=== PATIENT | male | born 1980 | race Caucasian/White ===

== ENCOUNTER → 2018-09-28 07:04 | Outpatient (CLI) | payer BC, SELFPAY ==
[2018-09-28 13:52] LABS: Basophils # 0.1 K/mm3 (0-0.2); Basophils % 1.2 % (0.1-2.0); Eosinophils # 0.2 K/mm3 (0.0-0.4); Eosinophils % 2.6 % (0.1-12.0); Hematocrit 45.8 % (42.0-52.0); Hemoglobin 15.6 g/dL (14.1-18.0); Lymphocytes # 2.1 K/mm3 (0.7-4.5); Lymphocytes % 30.9 % (10-50); Mean Corpuscular HGB Conc 34.1 g/dL (31.8-35.4); Mean Corpuscular Hemoglobin 30.4 pg (27.0-31.2); Mean Corpuscular Volume 89.1 fl (80-94); Monocytes # 0.3 K/mm3 (0.1-1.0); Monocytes % 4.3 % (1.7-9.3); Neutrophils # 4.1 K/mm3 (1.8-7.8); Platelet Count 343 K/mm3 (142-424); Red Blood Count 5.14 M/mm3 (4.60-6.20); Red Cell Distribution Width 13.1 % (11.5-17.5); White Blood Count 6.7 K/mm3 (4.8-10.8)
[2018-09-28 14:25] LABS: Alanine Aminotransferase 46 U/L (12-78); Albumin/Globulin Ratio 1.1 (1.1-1.8); Alkaline Phosphatase 159 U/L (46-116); Anion Gap 14.2 mEq/L (5-15); Aspartate Amino Transferase 21 U/L (15-37); Bilirubin,Total 0.3 mg/dL (0.2-1.0); Blood Urea Nitrogen 22 mg/dL (7-18); Calcium 9.2 mg/dL (8.5-10.1); Carbon Dioxide 27 mmol/L (21.0-32.0); Chloride 102 mmol/L (98-107); Chol/HDL Ratio 8.2 (1-3.5); Cholesterol 197 mg/dL (140-200); Estimated Glomerular Filt Rate 84 ml/min (>60); GFR (African American) 101 ML/MIN (>60); Globulin 3.5 gm/dl (1.3-3.2); Glucose 111 mg/dL (74-106); HDL Cholesterol 24 mg/dL (27-67); LDL Cholesterol 122 mg/dL (0-130); Potassium 4.2 mmoL/L (3.5-5.1); Sodium 139 mmol/L (136-145); Thyroid Stimulating Hormone 2.25 uIU/ml (0.358-3.740); Total Protein,Serum 7.5 gm/dL (6.4-8.2); Triglycerides 257 mg/dL (30-200); VLDL Cholesterol 51 mg/dL (0-40)
[2018-09-28 15:53] LABS: Hemoglobin A1C 5.4 % (0.0-7.0)
== END ==
PROVIDERS: PCP Nurse Practitioner Family; Visit Provider Nurse Practitioner Family
DX: K21.9 Gastro-esophageal reflux disease without esophagitis (principal); R13.10 Dysphagia, unspecified; G43.909 Migraine, unspecified, not intractable, without status migrainosus; I16.0 Hypertensive urgency; Z68.32 Body mass index [BMI] 32.0-32.9, adult
CPT/HCPCS: 36415; 80053; 80061; 83036; 84443; 85025

== ENCOUNTER 2021-02-03 21:32 | Emergency (ER) | payer BC, SELFPAY ==
[2021-02-03 21:33] VITALS: BP 117/72; PULSE 64; RESP 16; TEMP 37.1; O2SAT 99; BMI 33.0
[2021-02-03 21:41] VITALS: BP 117/72; PULSE 62; RESP 18; O2SAT 97
--- NOTE | 2021-02-03 21:51 | CT_ITS ---
PROCEDURE INFORMATION: Exam: CT Head Without Contrast Exam date and time: 02/03/2021 9:51 PM Age: 40 years old Clinical indication: Syncope and collapse; Additional info: Weakness TECHNIQUE: Imaging protocol: Computed tomography of the head without contrast. Radiation optimization: All CT scans at this facility use at least one of these dose optimization techniques: automated exposure control; mA and/or kV adjustment per patient size (includes targeted exams where dose is matched to clinical indication); or iterative reconstruction. COMPARISON: No relevant prior studies available. FINDINGS: Brain: Normal. No hemorrhage. Unremarkable white matter. No mass effect. Cerebral ventricles: No ventriculomegaly. Paranasal sinuses: Mild ethmoid mucosal thickening is present. Mild polypoid mucoperiosteal thickening of the maxillary sinuses is present. Mastoid air cells: Visualized mastoid air cells are well aerated. Bones/joints: Unremarkable. No acute fracture. Soft tissues: Unremarkable. IMPRESSION: No acute intracranial abnormality.
--- NOTE | 2021-02-03 21:51 | XR_ITS ---
PROCEDURE INFORMATION: Exam: XR Chest Exam date and time: 02/03/2021 9:51 PM Age: 40 years old Clinical indication: Other: Syncope; Additional info: Weakness TECHNIQUE: Imaging protocol: XR of the chest. Views: 2 views. COMPARISON: No relevant prior studies available. FINDINGS: Airway: Patent Lungs: Bilateral mid to basal patchy and ground-glass airspace opacities are appreciated. Bilateral perihilar haziness and streaky-like opacities. Mild segmental bronchial wall thickening. Pleural spaces: Unremarkable. No pleural effusion. No pneumothorax. Heart/Mediastinum: Unremarkable. No cardiomegaly. Bones/joints: No acute skeletal abnormality or aggressive osseous lesion. IMPRESSION: Mid to basal predominant moderate acute airspace disease, concerning for atypical infectious pneumonia in the appropriate clinical setting.
--- NOTE | 2021-02-03 21:51 | CT_ITS ---
PROCEDURE INFORMATION: Exam: CT Abdomen And Pelvis With Contrast Exam date and time: 02/03/2021 9:51 PM Age: 40 years old Clinical indication: Nausea; Patient HX: Abd discomfort, weakness, syncope TECHNIQUE: Imaging protocol: Computed tomography of the abdomen and pelvis with contrast. Radiation optimization: All CT scans at this facility use at least one of these dose optimization techniques: automated exposure control; mA and/or kV adjustment per patient size (includes targeted exams where dose is matched to clinical indication); or iterative reconstruction. Contrast material: ISOVUE; Contrast volume: 75 ml; Contrast route: IV; COMPARISON: CR XR CHEST 2V 02/03/2021 10:22 PM FINDINGS: Lungs: Calcified granuloma in the right lung base is of no clinical concern. Scattered patchy and ground-glass airspace opacifications are appreciated in the bilateral lung bases. Liver: There is enlargement of the liver, measuring 19 cm. There is a diffuse decrease in hepatic parenchymal density, consistent with fatty infiltration. 7 mm hypodense lesion in the right hepatic lobe on image 22 series 3 is too small to characterize but most probably benign representing a small cyst or hemangioma. No follow-up is recommended. The liver is otherwise unremarkable. Gallbladder and bile ducts: Normal. No calcified stones. No ductal dilation. Pancreas: Normal. No ductal dilation. Spleen: Punctate splenic calcifications are of no concern and most probably vascular in etiology. The spleen is otherwise unremarkable. Adrenal glands: Normal. No mass. Kidneys and ureters: Normal. No hydronephrosis. Stomach and bowel: No bowel obstruction or significant bowel wall thickening. Appendix: A normal appendix is identified. Intraperitoneal space: Unremarkable. No free air. No significant fluid collection. Vasculature: Unremarkable. No abdominal aortic aneurysm. Lymph nodes: Unremarkable. No enlarged lymph nodes. Urinary bladder: Unremarkable as visualized. Reproductive: The prostate demonstrates nonspecific parenchymal calcifications. Bones/joints: Unremarkable. No acute fracture. Soft tissues: Unremarkable. IMPRESSION: 1. Moderate to severe acute airspace disease in the bilateral lung bases, highly concerning for atypical infectious pneumonia. Commonly reported imaging features of COVID-19 pneumonia are present. Other processes such as influenza pneumonia and organizing pneumonia, as can be seen with drug toxicity and connective tissue disease, can cause a similar imaging pattern. (Reference: Lisandro) 2. Negative for acute abdominopelvic pathology. 3. Incidental findings as detailed above. REFERENCES: Lisandro Baeza, et al., [employer] Society of [place] Expert Consensus Statement on Reporting Chest CT Findings Related to COVID-19. Endorsed by the Society of [employer]acic Radiology, the [place] [employer], and [employer]NA. Published October 06, 2019.
--- NOTE | 2021-02-03 21:56 | ECG_ITS ---
APPROVED REPORT Exam: Resting ECG HR:63 bpm ECG Measurements Heart Rate 63 AXES SC 136 P 27 QRSd 88 QRS 15 QT 390 T -3 QTc 399 Conclusion Normal sinus rhythm Normal ECG Electronically signed by : Rich Parikh, 02/04/2021 08:24:05
[2021-02-03 22:02] LABS: Basophils % 0.8 % (0.1-2.0); Eosinophils % 1.1 % (0.1-12.0); Hematocrit 40.4 % (42.0-52.0); Hemoglobin 14.4 g/dL (14.1-18.0); Lymphocytes # 1.2 K/mm3 (0.7-4.5); Lymphocytes % 30.7 % (10-50); Mean Corpuscular HGB Conc 35.7 g/dL (31.8-35.4); Mean Corpuscular Hemoglobin 31.4 pg (27.0-31.2); Mean Corpuscular Volume 87.9 fl (80-94); Mean Platelet Volume 8.1 fl (7.4-10.4); Monocytes # 0.2 K/mm3 (0.1-1.0); Neutrophils # 2.4 K/mm3 (1.8-7.8); Neutrophils % 63.3 % (37.0-80.0); Platelet Count 209 K/mm3 (142-424); Red Cell Distribution Width 13.7 % (11.5-17.5); White Blood Count 3.8 K/mm3 (4.8-10.8)
[2021-02-03 22:02] LABS: Adenovirus,PCR Not Detected (NotDetected); Bordetella Pertussis Not Detected (NotDetected); Chlamydophila Pneumoniae, PCR Not Detected (NotDetected); Coronavirus 229E Not Detected (NotDetected); Coronavirus NL63 Not Detected (NotDetected); Coronavirus OC43 Not Detected (NotDetected); Coronovirus HKU1,PCR Not Detected (NotDetected); Human Metapneumovirus Not Detected (NotDetected); Influenza A, PCR Not Detected (NotDetected); Influenza AH1, 2009 Not Detected (NotDetected); Influenza AH1, PCR Not Detected (NotDetected); Influenza AH3,PCR Not Detected (NotDetected); Influenza B, PCR Not Detected (NotDetected); Mycoplasma Pneumoniae, PCR Not Detected (NotDetected); Parainfluenza 1, PCR Not Detected (NotDetected); Parainfluenza 2, PCR Not Detected (NotDetected); Parainfluenza 3, PCR Not Detected (NotDetected); Parainfluenza 4, PCR Not Detected (NotDetected); Respiratory Syncytial Virus Not Detected (NotDetected); Rhinovirus/Enterovirus Not Detected (NotDetected)
[2021-02-03 22:06] LABS: Alanine Aminotransferase 59 U/L (12-78); Albumin Level 4.3 g/dl (3.5-5.0); Albumin/Globulin Ratio 1.3 (1.1-1.8); Alkaline Phosphatase 130 U/L (38-126); Anion Gap 10.2 mEq/L (5-15); Aspartate Amino Transferase 64 U/L (17-59); Bilirubin,Total 0.7 mg/dl (0.2-1.3); Blood Urea Nitrogen 27 mg/dl (9-20); Calcium 8.6 mg/dl (8.4-10.2); Carbon Dioxide 30 mmol/L (22.0-30.0); Chloride 97 mmol/L (98-107); Creatinine Clearance Estimated 87 mL/min (50-200); Estimated Glomerular Filt Rate 42 ml/min (>60); GFR (African American) 51 ML/MIN (>60); Globulin 3.2 g/dL (1.3-3.2); Glucose 134 mg/dl (74-100); Potassium 3.2 mmoL/L (3.5-5.1); Sodium 134 mmol/L (136-145); Total Protein,Serum 7.5 g/dl (6.3-8.2)
[2021-02-03 22:07] VITALS: BP 101/70; PULSE 70; RESP 18; O2SAT 97
[2021-02-03 22:11] LABS: C-Reactive Protein 22.1 mg/L (0-4)
[2021-02-03 22:20] LABS: Troponin I < 0.01 ng/ml (0.00-0.034)
--- NOTE | 2021-02-03 22:21 | [facility].EDWEAK ---
ED Disposition Clinical Impression: Pneumonia due to COVID-19 virus, YUVAL (acute kidney injury) Disposition: Home, Self-Care Condition on Discharge: Good Instructions: DI for COVID-19 (Suspected or Confirmed ) Additional Instructions: fluids and hold lisinopril and call pcp friday Prescriptions: predniSONE [Prednisone 20mg Tab] 20 mg PO BID #10 tab Transmission Status: Pending to [id number] Azithromycin [Zithromax 250mg tab] 250 mg PO DIRECTED #6 tab Transmission Status: Pending to [facility] ondansetron HCL [Zofran 4mg Tab] 4 mg PO TID #21 tab Transmission Status: Pending to [id number] Referrals: Evonne Haas APRN [Primary Care Provider] - - Critical Care Critical Care Time: No Attestation: On 02/03/21, the high probability of a clinically significant, sudden or life threatening deterioration of the following system(s) required my full and direct attention, intervention and personal management. The time I documented below is in addition to time spent performing reported procedures but includes the following listed in this critical care notation. Medical Decision Making - Medical Records Medical records reviewed: Yes: I reviewed the patient's medical records. - Jacob Inquiry Pt receiving controlled substance: No Vital Signs: 02/03/21 21:33 02/03/21 21:41 02/03/21 22:07 Temperature 98.8 F Temperature Source Oral Pulse Rate 62 70 Pulse Rate [Right] 64 Respiratory Rate 16 18 18 Blood Pressure 117/72 101/70 L Blood Pressure [Right Arm] 117/72 Blood Pressure Mean 76 76 Blood Pressure Mean [Right Arm] 87 02 Sat by Pulse Oximetry 99 97 97 02/03/21 22:53 02/03/21 23:00 02/03/21 23:30 Temperature Temperature Source Pulse Rate 64 59 L 61 Pulse Rate [Right] Respiratory Rate 18 18 16 Blood Pressure 104/61 L 109/58 L 111/71 Blood Pressure [Right Arm] Blood Pressure Mean 76 68 79 Blood Pressure Mean [Right Arm] 02 Sat by Pulse Oximetry 97 95 94 L 02/04/21 00:00 02/04/21 00:30 02/04/21 01:01 Temperature Temperature Source Pulse Rate 72 59 L 62 Pulse Rate [Right] Respiratory Rate 18 20 18 Blood Pressure 104/49 L 105/70 L 80/38 L Blood Pressure [Right Arm] Blood Pressure Mean 67 78 52 Blood Pressure Mean [Right Arm] 02 Sat by Pulse Oximetry 94 L 96 98 02/04/21 01:04 02/04/21 01:30 Temperature Temperature Source Pulse Rate 60 65 Pulse Rate [Right] Respiratory Rate 16 16 Blood Pressure 88/44 L 130/80 Blood Pressure [Right Arm] Blood Pressure Mean 52 93 Blood Pressure Mean [Right Arm] 02 Sat by Pulse Oximetry 97 96 - Lab Data Lab results reviewed: Yes: I reviewed the patient's lab results. Lab Results 02/03/21 21:48: WBC 3.8 L, RBC 4.60, Hgb 14.4, Hct 40.4 L, MCV 87.9, MCH 31.4 H, MCHC 35.7 H, RDW 13.7, Plt Count 209, MPV 8.1, Neut % (Auto) 63.3, Lymph % (Auto) 30.7, [place] % (Auto) 4.0, Eos % (Auto) 1.1, Baso % (Auto) 0.8, Neut # (Auto) 2.4, Lymph # (Auto) 1.2, [place] # (Auto) 0.2, Eos # (Auto) 0.0, Baso # (Auto) 0.0, ESR 25 H 02/03/21 21:48: Sodium 134 L, Potassium 3.2 L, Chloride 97 L, Carbon Dioxide 30, Anion Gap 10.2, BUN 27 H, Creatinine 1.80 H, Estimated Creat Clear 87, Estimated GFR 42 L, Est GFR ( Amer) 51 L, Glucose 134 H, Calcium 8.6, Total Bilirubin 0.7, AST 64 H, ALT 59, Alkaline Phosphatase 130 H, Troponin I < 0.01, C-Reactive Protein 22.1 H, Total Protein 7.5, Albumin 4.3, Globulin 3.2, Albumin/Globulin Ratio 1.3, Procalcitonin 0.142 02/03/21 21:55: Lactate 1.0 02/03/21 21:55: Chlamy pneumoniae PCR Not detected, Adenovirus (PCR) Not detected, B. pertussis DNA (PCR) Not detected, Coronavirus OC43 (PCR) Not detected, Coronavirus HKU1 (PCR) Not detected, Coronavirus 229E (PCR) Not detected, SARS-CoV-2 (PCR) Detected A, Coronavirus NL63 (PCR) Not detected, Human Metapneumovir PCR Not detected, Influenza A (H1) PCR Not detected, Influ A (H1N1/09) PCR Not detected, Influenza A (H3) PC
[2021-02-03 22:25] LABS: Procalcitonin 0.142 ng/mL (0.0-2.0)
[2021-02-03 22:36] LABS: Erythrocyte Sedimentation Rate 25 mm/hr (0-15)
[2021-02-03 22:53] VITALS: BP 104/61; PULSE 64; RESP 18; O2SAT 97
[2021-02-03 23:00] VITALS: BP 109/58; PULSE 59; RESP 18; O2SAT 95
[2021-02-03 23:18] LABS: Coronavirus 19, PCR Detected (NotDetected)
[2021-02-03 23:30] VITALS: BP 111/71; PULSE 61; RESP 16; O2SAT 94
[2021-02-04] VITALS (7 sets, daily range): BP systolic 80–130; BP diastolic 38–80; PULSE 59–72; RESP 14–20; TEMP 37.1; O2SAT 94–98
--- NOTE | 2021-02-04 01:06 | PC.NURSE ---
advised nurse of low bp after taken 2 times
--- NOTE | 2021-02-04 01:56 | PC.NURSE ---
Dr Mena speaking to Dr Clemente
== END 2021-02-04 02:34 | disposition home or self-care (01) ==
PROVIDERS: Emergency Provider Emergency Medicine; PCP Nurse Practitioner Family
DX: J12.82 Pneumonia due to coronavirus disease 2019 (principal); N17.9 Acute kidney failure, unspecified; K21.9 Gastro-esophageal reflux disease without esophagitis
CPT/HCPCS: 70450; 71046; 74177; 80053; 83605; 84145; 84484; 85025; 85651; 86140; 87581; 87633; 87798; 93005; 96365; 96366; 96375; 99284; J2405; Q9967